=== PATIENT | male | born 1955 | race Caucasian/White ===

== ENCOUNTER 2017-02-28 10:22 | Inpatient (IN) | payer BC, OTHER ==
[~2017-02-28] VITALS: Ht 182.9 cm; Wt 49.0 kg
[2017-02-28] VITALS (26 sets, daily range): BP systolic 81–141; BP diastolic 51–92
--- NOTE | 2017-02-28 10:22 | NUR ---
[id number] FROM HOME: COPD EXACERBATION. BT x 1 GIVEN IN FIELD. SPO2 IN FIELD 84% BEFORE BREATHING TX. NAD NOTED. PT CAROLYNE Barone3, AT BEDSIDE. RT AT BEDSIDE. PT PLACED IN GOWN AND MONITOR.
[2017-02-28] MEDS ORDERED: methylPREDNISolone SOD SUCC 125 MG/2ML VIAL IV ONE (10:30)
[2017-02-28] MEDS ORDERED: LEVOFLOXACIN 750 MG /D5W 150ML PIGGYBACK IV ONE (10:30)
[2017-02-28] MEDS ORDERED: IPRATROPIUM NEB FS 0.5 MG/2.5 ML AMPUL.NEB NEB ONE (10:30)
[2017-02-28] MEDS ORDERED: ALBUTEROL FS 2.5 MG/3 ML VIAL.NEB NEB ONE ×2 (10:30→12:00)
[2017-02-28] MEDS ORDERED: ALBUTEROL FS 2.5 MG/3 ML VIAL.NEB ONE ×2 (10:30→11:39)
[2017-02-28] MEDS ORDERED: IPRATROPIUM NEB FS 0.5 MG/2.5 ML AMPUL.NEB ONE (10:30)
[2017-02-28] MEDS ORDERED: Magnesium 1GM/D5W 100ML PREMIX 100 ML IV ONE ×2 (10:32→11:28)
[2017-02-28] MEDS ORDERED: methylPREDNISolone SOD SUCC 125 MG/2ML VIAL ONE (10:32)
[2017-02-28 10:33] LABS: BASOPHILS % (AUTO) 0.2 % (0.0-2.0); EOSINOPHILS % (AUTO) 0.1 % (0.0-6.0); HEMATOCRIT 48 % (39-51); LYMPHOCYTES # (AUTO) 0.6 /CMM (0.8-4.8); LYMPHOCYTES % (AUTO) 7.4 % (20.0-44.0); MEAN CORPUSCULAR HEMOGLOBIN 33 PG (26.0-33.0); MEAN CORPUSCULAR HGB CONC 34 g/dl (31.0-36.0); MEAN CORPUSCULAR VOLUME 97 fL (80-96); MONOCYTES # (AUTO) 0.4 /CMM (0.1-1.30); MONOCYTES % (AUTO) 5.1 % (2.0-12.0); NEUTROPHILS # (AUTO) 7.4 /CMM (1.8-8.9); NEUTROPHILS % (AUTO) 87.2 % (43.0-81.0); PLATELET COUNT (AUTO) 210 /CMM (150-450); WHITE BLOOD COUNT (AUTO) 8.4 K/uL (4.3-11.0)
[2017-02-28] MEDS ORDERED: LEVOFLOXACIN 750 MG /D5W 150ML 150 ML IV ONE (10:33)
[2017-02-28] MEDS: Magnesium 1GM/D5W 100ML PREMIX 100 ML IV SCH ×2 (10:40→11:28)
[2017-02-28 10:48] LABS: CALCIUM, SERUM 9.7 mg/dL (8.5-10.1); CARBON DIOXIDE 36 mmol/L (21-32); CHLORIDE 98 mmol/L (98-107); CREATININE 0.7 mg/dL (0.6-1.3); GLUCOSE 141 mg/dL (74-106); POTASSIUM 4.9 mmol/L (3.5-5.1); SODIUM SERUM 136 mmol/L (136-145); UREA NITROGEN, BLOOD 17 mg/dL (7-18)
[2017-02-28 10:58] LABS: TROPONIN I < 0.017 ng/mL (0.00-0.056)
--- NOTE | 2017-02-28 10:58 | NUR ---
PT RECEIVED IN ER IN RESP DISTRESS, PLACED ON BIPAP W/SETTINGS 15/ 16 60% PER MD. HHN TX GIVEN INLINE. BREATH SOUNDS DIMINISHED, EQUAL. ABG DONE PER ORDER AND REPORTED TO MD. BIPAP SETTINGS CHANGED TO ST18/5 22 30% Addendum: 02/28/17 at 1100 by HUMZA ENRIQUE RT Amended: Links added.
--- NOTE | 2017-02-28 11:10 | NUR ---
[facility] CALLED [phone], DR LORENZANA PLANT ELECTRICIAN
--- NOTE | 2017-02-28 11:20 | NUR ---
SETTING CHANGED TO 24/08 RR24, S/P COMPLAINING OF DYSPNEA ON BIPAP. ABG DONE AND REPORTED
[2017-02-28] MEDS ORDERED: FLUT1DIS IH (11:21)
[2017-02-28] MEDS ORDERED: ALBU8.5H2 INH (11:21)
[2017-02-28 11:32] LABS: ABG BASE EXCESS 0.9 mmol/L; ABG OXYGEN SATURATION 96.4 % (92.0-98.5); ABG PCO2 80.7 mmHg (35.0-45.0); ABG PH 7.214 (7.350-7.450); ABG PO2 100.9 mmHg (75.0-100.0); AaDO2 18.2 mmHg; MetHb 0.5 % (0.0-1.5); SITE, ABG Right Radial; VENT MODE, BG ST 22/5
[2017-02-28] MEDS ORDERED: AZITHROMYCIN 500 MG in IV D5W 250 ML IV SCH (12:30)
[2017-02-28] MEDS ORDERED: ONDANSETRON HCL/PF 4 MG/2 ML VIAL IVP PRN (12:30)
[2017-02-28] MEDS ORDERED: ACETAMINOPHEN 325 MG TABLET PO PRN (12:30)
[2017-02-28] MEDS: GUAIFENESIN LA 600 MG TABLET.SA PO SCH ×2 (12:30→20:17)
[2017-02-28] MEDS: methylPREDNISolone SOD SUCC 125 MG/2ML VIAL IV SCH ×2 (13:00→15:06)
[2017-02-28] MEDS: IPRATROPIUM NEB FS 0.5 MG/2.5 ML AMPUL.NEB NEB SCH ×2 (13:30→19:55)
[2017-02-28] MEDS: ALBUTEROL FS 2.5 MG/0.5 ML VIAL.NEB NEB SCH ×2 (13:30→19:55)
--- NOTE | 2017-02-28 14:45 | NUR ---
61 Y.O. WHITE MALE ADMITTED VIA GURNEY FROM ER TO RM 256. DX HYPERCAPNIC RESPIRATORY FAILURE. WAS ALOC ON ADMISSION TO ER BUT NOW ALERT AND CONVERSANT ON BIPAP. D/W R.T. BIPAP SETTINGS-R.T WANTS TO RECHECK ABG AT 17OO CURRENT BIPAP 22/5, RESPIR SET RATE 24 WITH TIDAL VOLS 800 MLS PER R.T. ABG NOTED. PT MARKEDLY CACHETIC WITH BED SCALE WGT OF 110 LBS AND 6 FEET TALL. STATES HE IS STILL SMOKING, NOT REALLY EATING MUCH. 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 IN TO VISIT
[2017-02-28] MEDS: PANTOPRAZOLE 40 MG VIAL IV SCH (15:04)
[2017-02-28] MEDS: CEFTRIAXONE 1 G in IV D5W 50 ML IV SCH (15:25)
[2017-02-28] MEDS: AZITHROMYCIN 500 MG in IV D5W 250 ML IV SCH (15:45)
[2017-02-28 16:39] LABS: ABG BASE EXCESS 5.3 mmol/L; ABG OXYGEN SATURATION 93.3 % (92.0-98.5); ABG PCO2 39.8 mmHg (35.0-45.0); ABG PH 7.482 (7.350-7.450); AaDO2 142.6 mmHg; MetHb 0.2 % (0.0-1.5); O2Hb 92.2 % (94.0-97.0); SITE, ABG Right Radial; VENT MODE, BG NASAL CANNULA
[2017-02-28 16:42] LABS: ABG BASE EXCESS 0.7 mmol/L; ABG OXYGEN SATURATION 97.1 % (92.0-98.5); ABG PCO2 51.9 mmHg (35.0-45.0); ABG PH 7.341 (7.350-7.450); ABG PO2 106.2 mmHg (75.0-100.0); AaDO2 46.7 mmHg; COHb 1.1 % (0.5-1.5); MetHb 0.5 % (0.0-1.5); O2Hb 95.5 % (94.0-97.0); SITE, ABG Right Radial; VENT MODE, BG BIPAP 22/5
--- NOTE | 2017-02-28 16:58 | NUR ---
ABG NOTE INCORRECT ABG REQ FORM SCANNED, ABG RESULT FOR 02/28/17 4:38pm IS NOT FOR THIS PATIENT. ICU SERVICE TEAM LEADER AWARE. IT DESK WILL BE CONTACTED TO EDIT/DELETE THE ABG FROM SYSTEM UNDER THIS PATIENT'S NAME.
--- NOTE | 2017-02-28 17:01 | NUR ---
ABG NOTE IT DESK CONTACTED, UNABLE TO HELP AT THIS TIME. ADVISED TO CONTACT LOCAL IT TEAM (INHOUSE) DURING THE WEEK TO ASSIST. WILL ENDORSE TO NOC SHIFT AND DAY SHIFT TOMORROW TO FOLLOW UP
--- NOTE | 2017-02-28 17:10 | NUR ---
D/W DR SALOMÓN ASHLEY WITH PH 7.34 PCO2 52 PO2 106 ON BIPAP, SBP IN THE 80'S, ?? IV FLUIDS, AND ? ANTI DVT RX. SEE ORDERS
[2017-02-28 17:24] LABS: ABG BASE EXCESS 0.4 mmol/L; ABG PCO2 107.3 mmHg (35.0-45.0); ABG PO2 297.3 mmHg (75.0-100.0); AaDO2 12.5 mmHg; COHb 1.7 % (0.5-1.5); MetHb 0.6 % (0.0-1.5); O2Hb 96.7 % (94.0-97.0); SITE, ABG Right Radial; VENT MODE, BG ST 15/5
[2017-02-28] MEDS ORDERED: IV NS 0.9% 500 ML IV ONE (17:30)
[2017-02-28] MEDS: IV D5/0.45 NACL 1,000 ML IV PRN (17:53)
--- NOTE | 2017-02-28 18:04 | NUR ---
OFF OF BIPAP FOR DINNER BUT COULD ONLY JOSSELYN 30 MIN BEFORE HE REQUESTED BIPAP AGAIN. SBP NOW 100 AFTER CHALLENGE
--- NOTE | 2017-02-28 19:30 | NUR ---
RN INITIAL NOTES RECEIVED PT ASLEEP ON BED, EASILY AROUSABLE BY NAME AND TOUCH. A/O X3. ON BIPAP WITH SETTINGS 15/5, RATE 14, 30%, NO S/S OF RESP DISTRESS, DENIES ANY PAIN. CURRENTLY SR ON THE MONITOR, HR 80-90'S. PT IS CONTINENT, ABLE TO USE THE URINAL. RIGHT AC18G AND LEFT AC18G WITH D5 1/2NS @ 100MLS/HR, BOTH FLUSHED AND PATENT, NO S/S OF INFILTRATION/INFECTION, DRESSINGS CDI. BED LOW AND LOCKED, SIDERAILS UP, CALL LIGHT WITHIN REACH. WILL MONITOR
[2017-02-28] MEDS: Z GUARD REMEDY 4 OZ OINT TP SCH (20:18)
[2017-02-28] MEDS: ENOXAPARIN SODIUM 40 MG/0.4 ML DISP.SYRIN SQ SCH (20:18)
[2017-03-01] VITALS (38 sets, daily range): BP systolic 96–144; BP diastolic 59–93
[2017-03-01] MEDS: ALBUTEROL FS 2.5 MG/0.5 ML VIAL.NEB NEB SCH ×4 (01:49→19:28)
[2017-03-01] MEDS: IPRATROPIUM NEB FS 0.5 MG/2.5 ML AMPUL.NEB NEB SCH ×4 (01:49→19:28)
[2017-03-01] MEDS: IV D5/0.45 NACL 1,000 ML IV PRN ×2 (02:49→11:33)
[2017-03-01 04:55] LABS: BASOPHILS % (AUTO) 0.1 % (0.0-2.0); HEMATOCRIT 40 % (39-51); HEMOGLOBIN 13.3 g/dL (13.5-17.5); LYMPHOCYTES # (AUTO) 0.5 /CMM (0.8-4.8); LYMPHOCYTES % (AUTO) 7.1 % (20.0-44.0); MEAN CORPUSCULAR HEMOGLOBIN 32 PG (26.0-33.0); MEAN CORPUSCULAR HGB CONC 33 g/dl (31.0-36.0); MEAN CORPUSCULAR VOLUME 98 fL (80-96); MONOCYTES # (AUTO) 0.6 /CMM (0.1-1.30); MONOCYTES % (AUTO) 8.3 % (2.0-12.0); NEUTROPHILS # (AUTO) 5.9 /CMM (1.8-8.9); NEUTROPHILS % (AUTO) 84.5 % (43.0-81.0); PLATELET COUNT (AUTO) 171 /CMM (150-450); RED BLOOD CELL COUNT(AUTO) 4.12 MIL/uL (4.5-6.0); WHITE BLOOD COUNT (AUTO) 6.9 K/uL (4.3-11.0)
[2017-03-01 05:11] LABS: BILIRUBIN,TOTAL 0.2 mg/dL (0.2-1.0); CREATININE 0.7 mg/dL (0.6-1.3); PHOSPHORUS 3.2 mg/dL (2.5-4.9); POTASSIUM 4.5 mmol/L (3.5-5.1); TOTAL PROTEIN, SERUM 6.6 g/dL (6.4-8.2)
--- NOTE | 2017-03-01 06:20 | NUR ---
RN CLOSING NOTES PT REMAINS STABLE OF THE MOMENT. ALL DUE MEDS GIVEN, NEEDS MET. WILL ENDORSE CONTINUITY OF CARE TO AM RN
--- NOTE | 2017-03-01 07:19 | NUR ---
MECHANICAL INSPECTOR RECEIVED PATIENT FROM THE PREVIOUS SHIFT. PATIENT IS IN BED. RESTING COMFORTABLY. AFEBRILE. VITAL SINGS STABLE. SINUS DIRK ON MONITOR. TURNED AND REPOSITIONED FOR COMFORT AND WOUND PREVENTION. WILL CONTINUE TO MONITOR AND PROVIDE CARE.
[2017-03-01] MEDS: methylPREDNISolone SOD SUCC 125 MG/2ML VIAL IV SCH ×3 (07:44→16:40)
[2017-03-01] MEDS: PANTOPRAZOLE 40 MG VIAL IV SCH (07:44)
[2017-03-01] MEDS: GUAIFENESIN LA 600 MG TABLET.SA PO SCH ×2 (07:44→20:25)
[2017-03-01] MEDS: Z GUARD REMEDY 4 OZ OINT TP SCH ×2 (07:45→20:27)
[2017-03-01] MEDS: LACTOSE-FREE FOOD 237 ML LIQUID PO SCH ×2 (09:00→16:41)
[2017-03-01 09:43] LABS: ABG BASE EXCESS 4.9 mmol/L; ABG OXYGEN SATURATION 96.5 % (92.0-98.5); ABG PCO2 66.8 mmHg (35.0-45.0); ABG PH 7.316 (7.350-7.450); AaDO2 25.8 mmHg; COHb 0.3 % (0.5-1.5); MetHb 0.5 % (0.0-1.5); O2Hb 95.7 % (94.0-97.0); SITE, ABG Right Radial; VENT MODE, BG 2L N/C
[2017-03-01] MEDS ORDERED: CT SWABBABLE VALVE TRANS SET 1 EA INFUS.SET MC ONE (11:44)
[2017-03-01] MEDS ORDERED: IOHEXOL-300 100 ML VIAL IV ONE (11:44)
[2017-03-01] MEDS ORDERED: IV NS 0.9% 250 ML IV ONE (11:45)
[2017-03-01] MEDS: CEFTRIAXONE 1 G in IV D5W 50 ML IV SCH (12:15)
[2017-03-01] MEDS: AZITHROMYCIN 500 MG in IV D5W 250 ML IV SCH (15:00)
[2017-03-01] MEDS: LACTOBACILLUS RHAMNOSUS GG 1 EACH CAP.SPRINK PO SCH (16:41)
--- NOTE | 2017-03-01 19:20 | NUR ---
RN INITIAL NOTES RECEIVED AWAKE ON BED. A/O X3. ON 2L NASAL CANNULA, USE OF ACCESSORY MUSCLES FOR BREATHING NOTED, BUT SATURATING WELL. CURRENTLY SR ON THE MONITOR, HR 80'S. PT IS CONTINENT, ABLE TO USE THE URINAL. RIGHT AC18G AND LEFT AC18G WITH D5 1/2NS @ 100MLS/HR, BOTH FLUSHED AND PATENT, NO S/S OF INFILTRATION/INFECTION, DRESSINGS CDI. BED LOW AND LOCKED, SIDERAILS UP, CALL LIGHT WITHIN REACH. WILL MONITOR
[2017-03-01] MEDS: ENOXAPARIN SODIUM 40 MG/0.4 ML DISP.SYRIN SQ SCH (20:25)
[2017-03-02] VITALS (24 sets, daily range): BP systolic 95–158; BP diastolic 57–95
[2017-03-02] MEDS: IV D5/0.45 NACL 1,000 ML IV PRN ×2 (00:30→10:40)
[2017-03-02] MEDS: ALBUTEROL FS 2.5 MG/0.5 ML VIAL.NEB NEB SCH ×4 (02:20→19:32)
[2017-03-02] MEDS: IPRATROPIUM NEB FS 0.5 MG/2.5 ML AMPUL.NEB NEB SCH ×4 (02:20→19:32)
--- NOTE | 2017-03-02 06:20 | NUR ---
RN CLOSING NOTES PT REMAINS STABLE OF THE MOMENT. ALL DUE MEDS GIVEN, NEEDS MET. WILL ENDORSE CONTINUITY OF CARE TO AM RN
[2017-03-02] MEDS: PANTOPRAZOLE 40 MG VIAL IV SCH (08:05)
[2017-03-02] MEDS: LACTOSE-FREE FOOD 237 ML LIQUID PO SCH ×2 (08:05→17:39)
[2017-03-02] MEDS: LACTOBACILLUS RHAMNOSUS GG 1 EACH CAP.SPRINK PO SCH ×2 (08:05→16:21)
[2017-03-02] MEDS: methylPREDNISolone SOD SUCC 125 MG/2ML VIAL IV SCH ×3 (08:05→16:21)
[2017-03-02] MEDS: GUAIFENESIN LA 600 MG TABLET.SA PO SCH ×2 (08:05→20:44)
[2017-03-02] MEDS: Z GUARD REMEDY 4 OZ OINT TP SCH ×2 (08:06→20:45)
--- NOTE | 2017-03-02 09:52 | NUR ---
DR. HUBER ON THE UNIT EVAL'S THE PT. BIPAP OVERNIGHT AND THEN 2LNC AT 0745 THIS MORNING. ORDERS FOR AN ABG IN 2HRS WHILE THE PT IS ON 2L NC. POSSIBLE DOWNGRADE DEPENDING ON HOW WELL HES BREATHING LATER ON TODAY PER DR. HUBER.
[2017-03-02 11:45] LABS: ABG BASE EXCESS 8.1 mmol/L; ABG OXYGEN SATURATION 94.1 % (92.0-98.5); ABG PCO2 59.2 mmHg (35.0-45.0); ABG PO2 70.9 mmHg (75.0-100.0); AaDO2 58.9 mmHg; COHb 0.5 % (0.5-1.5); MetHb 0.6 % (0.0-1.5); O2Hb 93.1 % (94.0-97.0); SITE, ABG Right Radial; VENT MODE, BG nasal cannula
[2017-03-02] MEDS: CEFTRIAXONE 1 G in IV D5W 50 ML IV SCH (12:31)
[2017-03-02] MEDS: AZITHROMYCIN 500 MG in IV D5W 250 ML IV SCH (15:18)
--- NOTE | 2017-03-02 18:30 | NUR ---
REPORT RECEIVED FROM OLYA PROPOSAL DEVELOPMENT MANAGER. AWAITING TRANSFER.
--- NOTE | 2017-03-02 18:51 | NUR ---
PT TRANSFERRED TO [facility] [address] HUBER FOR [facility]. ALL BELONGINGS TRANSFERRED WITH PT, HE WAS TRANSFERRED ON 2LNC HE IS STABLE.
--- NOTE | 2017-03-02 18:56 | NUR ---
SYSTEM CONSULTANT NOTE RECEIVED PT VIA GURNEY BY OLYA MCCORMACK. PT STABLE V/S TAKEN WNL FOR PT. PT 2L NC SP O2 92%. A/O X4. NO C/O PAIN. @ BEDSIDE. ALL SAFETY MEASURES IN PLACE. PT CLEAN AND DRY. WILL CONTINUE TO MONITOR CLOSELY.
--- NOTE | 2017-03-02 19:05 | NUR ---
[facility] RN OPENING NOTES RECEIVED REPORT FROM NILSA MCCORMACK. PATIENT A/A/O X4, ABLE TO MAKE NEEDS KNOWN. BREATHING EVEN W/ SOME SOB NOTED BUT SATING WELL. ON TELE SINUS TACH IN THE 90S, DENIES ANY CHEST PAIN OR DISCOMFORT. SKIN INTACT & WARM TO TOUCH. RIGHT AC IV #18 INTACT & PATENT W/ DRESSING CDI & IVF D5W 1/2 NS @ 100 ML/HR. LEFT AC IV #18 INTACT & PATENT W/ DRESSING CDI, SALINE LOCKED. DENIES ANY PAIN @ THIS TIME. SAFETY MEASURES IN PLACE W/ SIDE RAILS UP, BED LOCKED & IN LOWEST POSITION, BED ALARM ON & CALL LIGHT WITHIN REACH. WILL CONTINUE TO MONITOR.
[2017-03-02] MEDS: ENOXAPARIN SODIUM 40 MG/0.4 ML DISP.SYRIN SQ SCH (20:45)
[2017-03-03] VITALS: BP 119/71
[2017-03-03] MEDS: IPRATROPIUM NEB FS 0.5 MG/2.5 ML AMPUL.NEB NEB SCH ×2 (01:44→07:21)
[2017-03-03] MEDS: ALBUTEROL FS 2.5 MG/0.5 ML VIAL.NEB NEB SCH ×2 (01:44→07:21)
[2017-03-03 04:00] VITALS: BP_SYST 102; BP_SYST 119; BP_DIAS 64; BP_DIAS 71
[2017-03-03] MEDS: IV D5/0.45 NACL 1,000 ML IV PRN ×2 (04:52→14:54)
[2017-03-03 06:37] LABS: BASOPHILS % (AUTO) 0.2 % (0.0-2.0); HEMATOCRIT 38 % (39-51); HEMOGLOBIN 12.7 g/dL (13.5-17.5); LYMPHOCYTES # (AUTO) 1.2 /CMM (0.8-4.8); LYMPHOCYTES % (AUTO) 12.8 % (20.0-44.0); MEAN CORPUSCULAR HEMOGLOBIN 33 PG (26.0-33.0); MEAN CORPUSCULAR HGB CONC 33 g/dl (31.0-36.0); MEAN CORPUSCULAR VOLUME 98 fL (80-96); MONOCYTES # (AUTO) 0.7 /CMM (0.1-1.30); MONOCYTES % (AUTO) 7.7 % (2.0-12.0); NEUTROPHILS # (AUTO) 7.5 /CMM (1.8-8.9); NEUTROPHILS % (AUTO) 79.3 % (43.0-81.0); PLATELET COUNT (AUTO) 169 /CMM (150-450); RDW COEFFICIENT OF VARIATION 13.7 (11.5-15.0); WHITE BLOOD COUNT (AUTO) 9.5 K/uL (4.3-11.0)
[2017-03-03 06:48] LABS: CALCIUM, SERUM 9.1 mg/dL (8.5-10.1); CREATININE 0.6 mg/dL (0.6-1.3); POTASSIUM 4.3 mmol/L (3.5-5.1)
[2017-03-03 08:00] VITALS: BP 100/69
[2017-03-03] MEDS: methylPREDNISolone SOD SUCC 125 MG/2ML VIAL IV SCH ×3 (08:02→17:50)
[2017-03-03] MEDS: PANTOPRAZOLE 40 MG VIAL IV SCH (08:02)
[2017-03-03] MEDS: LACTOBACILLUS RHAMNOSUS GG 1 EACH CAP.SPRINK PO SCH ×2 (08:02→17:50)
[2017-03-03] MEDS: GUAIFENESIN LA 600 MG TABLET.SA PO SCH ×2 (08:02→21:44)
[2017-03-03] MEDS: Z GUARD REMEDY 4 OZ OINT TP SCH ×2 (08:04→21:45)
[2017-03-03] MEDS: LACTOSE-FREE FOOD 237 ML LIQUID PO SCH ×3 (10:00→17:50)
--- NOTE | 2017-03-03 10:00 | NUR ---
RN NOTE CALLED DIETARY REGARDING STRAWBERRY BOOST. PATIENT RECEIVED A CHOCOLATE ONE INSTEAD. WILL FOLLOW UP.
[2017-03-03] MEDS: CEFTRIAXONE 1 G in IV D5W 50 ML IV SCH (11:54)
[2017-03-03 12:00] VITALS: BP 103/60
[2017-03-03 16:00] VITALS: BP_SYST 119; BP_SYST 142; BP_DIAS 72; BP_DIAS 74
[2017-03-03] MEDS: AZITHROMYCIN 250 MG TABLET PO SCH (17:50)
[2017-03-03 20:00] VITALS: BP 117/71
[2017-03-03] MEDS: ENOXAPARIN SODIUM 40 MG/0.4 ML DISP.SYRIN SQ SCH (21:44)
[2017-03-04] VITALS: BP_SYST 124; BP_SYST 137; BP_DIAS 69; BP_DIAS 83
[2017-03-04] MEDS: IV D5/0.45 NACL 1,000 ML IV PRN ×2 (02:43→16:05)
[2017-03-04 04:00] VITALS: BP 105/62
[2017-03-04 06:41] LABS: BASOPHILS % (AUTO) 0.1 % (0.0-2.0); HEMATOCRIT 40 % (39-51); HEMOGLOBIN 13.1 g/dL (13.5-17.5); LYMPHOCYTES % (AUTO) 12.4 % (20.0-44.0); MEAN CORPUSCULAR HEMOGLOBIN 32 PG (26.0-33.0); MEAN CORPUSCULAR HGB CONC 33 g/dl (31.0-36.0); MEAN CORPUSCULAR VOLUME 98 fL (80-96); MONOCYTES # (AUTO) 0.4 /CMM (0.1-1.30); NEUTROPHILS # (AUTO) 6.4 /CMM (1.8-8.9); NEUTROPHILS % (AUTO) 82.5 % (43.0-81.0); PLATELET COUNT (AUTO) 176 /CMM (150-450); RDW COEFFICIENT OF VARIATION 13.4 (11.5-15.0); RED BLOOD CELL COUNT(AUTO) 4.06 MIL/uL (4.5-6.0); WHITE BLOOD COUNT (AUTO) 7.8 K/uL (4.3-11.0)
[2017-03-04 07:02] LABS: CALCIUM, SERUM 8.9 mg/dL (8.5-10.1); CREATININE 0.6 mg/dL (0.6-1.3)
--- NOTE | 2017-03-04 07:42 | NUR ---
MARIA L RN NOTES RECEIVED PATIENTin bed A/A/O X4, ABLE TO MAKE NEEDS KNOWN. BREATHING EVEN ,NO SOB NOTED AT THIS TIME SATING WELL 98%.ON 2L NC ON TELE SR IN THE 68 , DENIES ANY CHEST PAIN OR DISCOMFORT. SKIN INTACT & WARM TO TOUCH. RIGHT AC IV #18 INTACT & PATENT W/ DRESSING CDI & IVF D5W 1/2 NS @ 100 ML/HR. LEFT AC IV HL INTACT & PATENT W/ DRESSING CDI, SALINE LOCKED. DENIES ANY PAIN @ THIS TIME. SAFETY MEASURES IN PLACE W/ SIDE RAILS UP, BED LOCKED & IN LOWEST POSITION, BED ALARM ON & CALL LIGHT WITHIN REACH. WILL CONTINUE TO MONITOR.ON IVF ORDERED, PLAN IOF CARE DISCUSSED WITH PATENT
[2017-03-04 08:00] VITALS: BP 129/78
[2017-03-04] MEDS: PANTOPRAZOLE 40 MG VIAL IV SCH (08:43)
[2017-03-04] MEDS: LACTOBACILLUS RHAMNOSUS GG 1 EACH CAP.SPRINK PO SCH ×2 (08:43→16:00)
[2017-03-04] MEDS: GUAIFENESIN LA 600 MG TABLET.SA PO SCH ×2 (08:43→20:20)
[2017-03-04] MEDS: methylPREDNISolone SOD SUCC 125 MG/2ML VIAL IV SCH ×2 (08:43→12:46)
[2017-03-04] MEDS: Z GUARD REMEDY 4 OZ OINT TP SCH ×2 (08:44→20:21)
[2017-03-04] MEDS: LACTOSE-FREE FOOD 237 ML LIQUID PO SCH ×2 (08:45→12:54)
[2017-03-04 12:00] VITALS: BP 116/72
[2017-03-04] MEDS: CEFTRIAXONE 1 G in IV D5W 50 ML IV SCH (12:46)
--- NOTE | 2017-03-04 13:06 | NUR ---
PRACTICE REPRESENTATIVE NOTE SEEN B Y DR DAMIR VILLARREAL TO HAVE CHOCOLATE BOOSTER ALSO SPOKE WITH CLINICAL EDUCATION CONSULTANT, C PAP WILL BE ARRANGE FOR HOME
--- NOTE | 2017-03-04 15:52 | NUR ---
INSTRUCTOR DRAMATIC ARTS NOTE PT EVAL DONE ABLE TO AMBULATE WITH O2 SAT 95%, WILL CONT TO MONITOR CLOSELY
[2017-03-04 16:00] VITALS: BP 143/76
[2017-03-04] MEDS: AZITHROMYCIN 250 MG TABLET PO SCH (16:00)
[2017-03-04] MEDS: BOOST PLUS FOOD-CHOCLATE 237 ML BOX PO SCH (16:01)
--- NOTE | 2017-03-04 16:12 | NUR ---
IC DESIGNER CUSTOM NOTE DOROTHY FROM [facility] AT BEDSIDE, INSTRUCTED PATIENT HOW TO USE C PAP MACHINE AT HOME .WILL F\U
--- NOTE | 2017-03-04 18:27 | NUR ---
PAROLE OFFICER NOTE PATIENT IN BED , AL NEEDS ATTENDED ,HAVING DINNER ,NOT IN ACUTE DISTRESS , AT BEDSIDE, WILL CONT TO AUREA CLOSELY , C PA MACHINE AT BEDSIDE TO TAKE HOME FOR TOMORROW
--- NOTE | 2017-03-04 19:30 | NUR ---
SIDEROGRAPHER OPENING NOTES: PATIENT IN BED, AOX4, ON O2 AT 2 LPM VIA NC, BREATHING EVEN AND UNLABORED. BREATH SOUNDS CLEAR TO AUSCULTATION. APPEARS CALM AND IN NO DISTRESS, DENIES PAIN OR DIFFICULTY BREATHING AT THIS TIME. ON TELE MONITORING: SR AT 89 BPM. PIV OVER LAC G 20 INTACT AND INFUSING WELL WITH D5 1/2 NS RUNNING AT 100 ML/HR. PROVIDED FOR COMFORT AND SAFETY. BED IN LOWEST AND LOCKED POSITION, SIDERAILS UPX2. WILL CONT TO MONITOR.
[2017-03-04 20:00] VITALS: BP 139/80
[2017-03-04] MEDS: ENOXAPARIN SODIUM 40 MG/0.4 ML DISP.SYRIN SQ SCH (20:25)
--- NOTE | 2017-03-04 23:15 | NUR ---
RN NOTES: RAUL RT AT BEDSIDE TO PLACE PATIENT ON BIPAP. O2 SAT AT 95-96%. BREATHING UNLABORED, BUT WITH OCCASIONAL COUGHING NOTED. HOB MAINTAINED ELEVATED.
[2017-03-05] VITALS: BP 124/83
[2017-03-05] MEDS: IV D5/0.45 NACL 1,000 ML IV PRN ×2 (02:29→15:30)
[2017-03-05 04:00] VITALS: BP 107/83
[2017-03-05 06:30] LABS: BASOPHILS % (AUTO) 0.3 % (0.0-2.0); HEMATOCRIT 40 % (39-51); HEMOGLOBIN 13.1 g/dL (13.5-17.5); LYMPHOCYTES # (AUTO) 1.9 /CMM (0.8-4.8); MEAN CORPUSCULAR HEMOGLOBIN 33 PG (26.0-33.0); MEAN CORPUSCULAR HGB CONC 33 g/dl (31.0-36.0); MEAN CORPUSCULAR VOLUME 99 fL (80-96); MONOCYTES # (AUTO) 0.7 /CMM (0.1-1.30); MONOCYTES % (AUTO) 9.2 % (2.0-12.0); NEUTROPHILS # (AUTO) 5.3 /CMM (1.8-8.9); NEUTROPHILS % (AUTO) 66.5 % (43.0-81.0); PLATELET COUNT (AUTO) 194 /CMM (150-450); RDW COEFFICIENT OF VARIATION 13.5 (11.5-15.0); RED BLOOD CELL COUNT(AUTO) 4.03 MIL/uL (4.5-6.0)
--- NOTE | 2017-03-05 06:34 | NUR ---
SAILING INSTRUCTOR CLOSING NOTES: PATIENT IN BED, AOX4, ON O2 AT 2 LPM VIA NC, BREATHING EVEN AND UNLABORED, BUT STILL NOTED TO HAVE OCCASIONAL COUGH. APPEARS CALM AND IN NO DISTRESS. DENIES PAIN. NO ACUTE CHANGE IN CONDITION NOTED THROUGH SHIFT. ON TELE MONITORING: SR RATE OF 60S. PIV OVER LAC G 20 INTACT AND INFUSING WELL WITH D5 1/2 NS RUNNING AT 100 ML/HR. DUE MEDS GIVEN. PROVIDED FOR COMFORT AND SAFETY. BED IN LOWEST AND LOCKED POSITION, SIDERAILS UPX2. WILL ENDORSE TO AM RN FOR CORAZON.
[2017-03-05 06:52] LABS: CALCIUM, SERUM 8.9 mg/dL (8.5-10.1); CREATININE 0.5 mg/dL (0.6-1.3)
[2017-03-05 08:00] VITALS: BP_SYST 128; BP_SYST 129; BP_DIAS 86
--- NOTE | 2017-03-05 08:00 | NUR ---
TELE1/RN AM SHIFT INITIAL NOTES RECEIVED PT AWAKE IN BED, PT A/O X 4, DENIES PAIN. NO ACUTE RESPIRATORY DISTRESS NOTED, PT DENIES ANY PAIN. ON 2L O2 VIA N/C SATURATING @ 98%, LUNG SOUNDS RHONCHI, PT NOTED WITH PRODUCTIVE COUGH. ON TELE WITH SINUS RHYTHM WITH PACs, HR 71. ON GOING IV INFUSION OF D5 1/2NS @ 100CC/HR, IV SITE PATENT WITH NO S/S OF INFECTION. PT IS COMFORTABLE AT THIS TIME. SCHEDULED AM MEDS TO BE GIVEN. CL WITHIN REACHED AND SAFETY MAINTAINED. ON GOING MONITORING.
[2017-03-05 08:36] VITALS: BP 128/86
[2017-03-05] MEDS: BOOST PLUS FOOD-CHOCLATE 237 ML BOX PO SCH ×2 (09:10→18:34)
[2017-03-05] MEDS: PANTOPRAZOLE 40 MG VIAL IV SCH (09:11)
[2017-03-05] MEDS: AZITHROMYCIN 250 MG TABLET PO SCH (09:11)
[2017-03-05] MEDS: Z GUARD REMEDY 4 OZ OINT TP SCH (09:11)
[2017-03-05] MEDS: GUAIFENESIN LA 600 MG TABLET.SA PO SCH ×2 (09:11→21:20)
[2017-03-05] MEDS: LACTOBACILLUS RHAMNOSUS GG 1 EACH CAP.SPRINK PO SCH ×2 (09:11→16:42)
[2017-03-05] MEDS: methylPREDNISolone SOD SUCC 125 MG/2ML VIAL IV SCH (09:12)
--- NOTE | 2017-03-05 11:27 | NUR ---
MS/RN ROUNDS - DR. REICH PT SEEN & EXAMINED BY DR. REICH. NO NEW ORDERS RECEIVED AT THIS TIME.
[2017-03-05] MEDS: CEFTRIAXONE 1 G in IV D5W 50 ML IV SCH (13:05)
[2017-03-05 16:00] VITALS: BP 139/87
--- NOTE | 2017-03-05 19:50 | NUR ---
MS1/RN AM SHIFT END NOTES ALL NEEDS MET. NO ACUTE CHANGE OF CONDITION NOTED DURING THE SHIFT. PT ENDORSED TO PM NURSE TO CONTINUE CARE. CL WITHIN REACHED AND SAFETY MAINTAINED.
[2017-03-05 20:00] VITALS: BP 143/89
--- NOTE | 2017-03-05 20:40 | NUR ---
MS INITIAL NOTES RECEIVED PT AWAKE IN BED, PT A/O X 4, DENIES PAIN. NO ACUTE RESPIRATORY DISTRESS NOTED, PT DENIES ANY PAIN. ON 2L O2 VIA N/C SATURATING @ 98%, LUNG SOUNDS RHONCHI, PT NOTED WITH PRODUCTIVE COUGH. ON TELE WITH SINUS RHYTHM WITH PACs, HR 80. ON GOING IV INFUSION OF D5 1/2NS @ 100CC/HR, IV SITE PATENT WITH NO S/S OF INFECTION. PT IS COMFORTABLE AT THIS TIME. SCHEDULED AM MEDS TO BE GIVEN. CL WITHIN REACHED AND SAFETY MAINTAINED. ON GOING MONITORING.
[2017-03-05] MEDS: ENOXAPARIN SODIUM 40 MG/0.4 ML DISP.SYRIN SQ SCH (21:31)
[2017-03-06] VITALS: BP 143/89
[2017-03-06] MEDS: IV D5/0.45 NACL 1,000 ML IV PRN (00:44)
[2017-03-06] MEDS: Z GUARD REMEDY 4 OZ OINT TP SCH ×2 (00:51→08:43)
[2017-03-06 04:00] VITALS: BP_SYST 119; BP_SYST 143; BP_DIAS 72; BP_DIAS 89
--- NOTE | 2017-03-06 06:18 | NUR ---
MS CLOSING NOTES ENDORSED PT AWAKE IN BED, PT A/O X 4, DENIES PAIN. NO ACUTE RESPIRATORY DISTRESS NOTED, PT DENIES ANY PAIN. ON 2L O2 VIA N/C SATURATING @ 98%, LUNG SOUNDS RHONCHI, PT NOTED WITH PRODUCTIVE COUGH. ON TELE WITH SINUS RHYTHM WITH PACs, HR 80. ON GOING IV INFUSION OF D5 1/2NS @ 100CC/HR, IV SITE PATENT WITH NO S/S OF INFECTION. PT IS COMFORTABLE AT THIS TIME. SCHEDULED AM MEDS TO BE GIVEN. CL WITHIN REACHED AND SAFETY MAINTAINED. ON GOING MONITORING. WILL ENDORSE TO AM SHIFT TO F/U ON DC PLANINIG.
--- NOTE | 2017-03-06 07:29 | NUR ---
RN NOTES RECEIVED PT FROM CONTENT SPECIALIST IN STABLE CONDITION RESTING IN BED, A&0X3, ON 2L NC NO SOB OR DISTRESS NOTED. LAC 20G IV SITE DRY AND INTACT WITH IVF AT 100ML/HR. NO COMPLAINTS OF PAIN. BED LOCKED AND IN LOWEST POSITION, CALL LIGHT WITHIN REACH, SIDE RAILS UPX3, WILL CONT TO MONITOR.
[2017-03-06 08:00] VITALS: BP 124/78
[2017-03-06] MEDS: BOOST PLUS FOOD-CHOCLATE 237 ML BOX PO SCH (08:40)
[2017-03-06] MEDS: GUAIFENESIN LA 600 MG TABLET.SA PO SCH (08:41)
[2017-03-06] MEDS: LACTOBACILLUS RHAMNOSUS GG 1 EACH CAP.SPRINK PO SCH (08:41)
[2017-03-06] MEDS: PANTOPRAZOLE 40 MG VIAL IV SCH (08:42)
[2017-03-06] MEDS: methylPREDNISolone SOD SUCC 125 MG/2ML VIAL IV SCH (08:42)
[2017-03-06] MEDS ORDERED: PRED5TAB48 PO (11:32)
[2017-03-06] MEDS ORDERED: PRED20TA PO ×2 (11:32)
[2017-03-06 12:00] VITALS: BP 118/64
--- NOTE | 2017-03-06 13:00 | NUR ---
RN NOTES PT DISCHARGED IN STABLE CONDITION WITH .
== END 2017-03-06 13:30 | disposition home health service (06) | DRG 189 ==
LOC: ER 10:23 → EDBD 10:23 → ICU 14:02 → TELE-TD 03-02 18:36 → TELE1 03-04 12:19 → MEDSG1 03-05 08:58
PROVIDERS: ADMIT Internal Medicine; ATTEND Internal Medicine
PROC: 5A09457 Assistance with Respiratory Ventilation, 24-96 Consecutive Hours, Continuous Positive Airway Pressure (ICD-10-PCS; principal; 2017-02-28)
DX: J96.22 Acute and chronic respiratory failure with hypercapnia (principal); E44.0 Moderate protein-calorie malnutrition; R64 Cachexia; J44.0 Chronic obstructive pulmonary disease with (acute) lower respiratory infection; Z99.81 Dependence on supplemental oxygen; J44.1 Chronic obstructive pulmonary disease with (acute) exacerbation; F17.200 Nicotine dependence, unspecified, uncomplicated; R91.1 Solitary pulmonary nodule; J20.9 Acute bronchitis, unspecified
CPT/HCPCS: 36415; 36600; 71010-TC; 71260-TC; 80048-TC; 80053-TC; 82803-TC; 83605-TC; 83735-TC; 83880; 84100-TC; 84484-TC; 85025-TC; 87040-TC; 87081-TC; 94762-TC; 94799-TC; A4606; C9113; J0456; J0696; J1650; J1956; J2930; J3475; J3490; J7040; J7050; J7060; Q9967; Z7610